=== PATIENT | female | born 1960 | race American Indian/Alaskan Native ===

== ENCOUNTER 2016-06-17 03:14 | Emergency (ER) | payer OTHER ==
[2016-06-17 03:31] VITALS: BP 154/98
[2016-06-17 03:58] LABS: Basophils % (Auto) 0.4 % (0.0-1.8); Hematocrit 38.9 % (30.3-42.9); Hemoglobin 13.1 gm/dl (10.1-14.3); Mean Corpuscular HGB Conc 34 % (30-34); Mean Corpuscular Hemoglobin 31 pg (28-32); Mean Corpuscular Volume 92 fl (79-97); Platelet Count 186 K/mm3 (140-440); Red Blood Count 4.24 M/mm3 (3.65-5.03); Red Cell Distribution Width 13.2 % (13.2-15.2); White Blood Count 4.3 K/mm3 (4.5-11.0)
[2016-06-17 04:18] LABS: Anion Gap 20 mmol/L; BUN/Creatinine Ratio 11.42; Blood Urea Nitrogen 8 mg/dL (7-17); Calcium 9.2 mg/dL (8.4-10.2); Carbon Dioxide 25 mmol/L (22-30); Chloride 101.1 mmol/L (98-107); Glucose 146 mg/dL (65-100); Potassium 3.7 mmol/L (3.6-5.0); Sodium 142 mmol/L (137-145)
--- NOTE | 2016-06-17 07:18 | XRay Report ---
ROUTINE CHEST, TWO VIEWS: HISTORY: Shortness of breath. The trachea, heart, mediastinal contour, lung rose and bony thorax are unremarkable. IMPRESSION: Unremarkable chest x-ray.
--- NOTE | 2016-06-18 05:19 | ED Elopement Review ---
ED Pt Elopement review - Results review Lab results: Laboratory Tests 06/17/16 06/17/16 03:40 03:40 WBC 4.3 L RBC 4.24 Hgb 13.1 Hct 38.9 MCV 92 MCH 31 MCHC 34 RDW 13.2 Plt Count 186 Lymph % (Auto) 38.9 H Hendricks % (Auto) 5.7 Eos % (Auto) 2.0 Baso % (Auto) 0.4 Lymph # 1.7 Hendricks # 0.2 Eos # 0.1 Baso # 0.0 Seg Neutrophils % 53.0 Seg Neutrophils # 2.3 Sodium 142 Potassium 3.7 Chloride 101.1 Carbon Dioxide 25 Anion Gap 20 BUN 8 Creatinine 0.7 Estimated GFR > 60 BUN/Creatinine Ratio 11.42 Glucose 146 H Calcium 9.2 Troponin T < 0.010 - Call Back decision Pt Call Back Decision: Pt to F/U with PMD
== END 2016-06-17 06:01 | disposition left against medical advice (07) ==
LOC: ED 03:14
DX: R05 Cough (principal); J00 Acute nasopharyngitis [common cold]; Z53.21 Procedure and treatment not carried out due to patient leaving prior to being seen by health care provider
CPT/HCPCS: 36415; 71020; 80048; 84484; 85025; 93005; 93010